=== PATIENT | male | born 1980 | race Caucasian/White ===

== ENCOUNTER 2016-12-17 11:24 | Emergency (ER) | payer MEDICAID ==
[2016-12-17 13:45] LABS: BASOPHILS 0.3 % (0-2); EOSINOPHILS 1.1 % (0-7); HEMATOCRIT 47.1 % (42.0-54.0); HEMOGLOBIN 15.9 g/dL (13.5-17.5); IMMATURE GRANULOCYTES 0.3 % (0-5); LYMPHOCYTES 30.8 % (15-50); MCHC 33.8 g/dL (31.0-37.0); MCV 94.8 fL (80.0-100.0); MEAN PLATELET VOLUME 10.6 fL (7.4-10.4); MONOCYTES 7.7 % (2-11); NEUTROPHILS 59.8 % (40-80); PLATELET COUNT 233 10x3/uL (130-400); RBC 4.97 10x6/uL (4.20-6.10); RDW 12.6 % (11.5-14.5); WBC 6.4 10x3/uL (4.8-10.8)
[2016-12-17 13:59] LABS: ALBUMIN 3.9 g/dL (3.4-5.0); ALKALINE PHOSPHATASE 64 U/L (46-116); ALT (SGPT) 44 U/L (10-68); CALC OSMOLALITY 282 mosm/kg (275-300); CARBON DIOXIDE 28.5 mmol/L (21.0-32.0); CHLORIDE - SERUM 107 mmol/L (98-107); CREATININE - SERUM 0.9 mg/dL (0.6-1.3); POTASSIUM - SERUM 4.4 mmol/L (3.5-5.1); PROTEIN - SERUM 7.3 g/dL (6.4-8.2); SODIUM 142 mmol/L (136-145); UREA NITROGEN 13 mg/dL (7-18); eGFR NON AFRICAN AMERICAN > 90 mL/min (90-120)
[2016-12-17 14:00] LABS: GLUCOSE 102 mg/dL (74-106)
[2016-12-17 14:16] LABS: MAGNESIUM - SERUM 2.3 mg/dL (1.8-2.4)
== END 2016-12-17 15:05 | disposition home or self-care (01) ==
LOC: D.ER 11:24
PROVIDERS: Emergency Medicine; Nurse Practitioner Family
DX: F91.8 Other conduct disorders (principal); F17.200 Nicotine dependence, unspecified, uncomplicated; F15.90 Other stimulant use, unspecified, uncomplicated

== ENCOUNTER 2017-11-04 11:49 | Emergency (ER) | payer MEDICAID ==
[~2017-11-04] VITALS: Ht 170.2 cm; Wt 70.5 kg
[2017-11-04 11:52] VITALS: Ht 170.2 cm; Wt 70.5 kg
[2017-11-04] MEDS ORDERED: VALIUM5 MG PO (11:55)
[2017-11-04 12:15] LABS: BASOPHILS 0.3 % (0-2); HEMATOCRIT 47.9 % (42.0-54.0); HEMOGLOBIN 16.3 g/dL (13.5-17.5); IMMATURE GRANULOCYTES 0.2 % (0-5); LYMPHOCYTES 32.2 % (15-50); MCH 31.1 pg (26.0-34.0); MCV 91.4 fL (80.0-100.0); MEAN PLATELET VOLUME 10.5 fL (7.4-10.4); MONOCYTES 8.1 % (2-11); NEUTROPHILS 56.2 % (40-80); PLATELET COUNT 245 10x3/uL (130-400); RBC 5.24 10x6/uL (4.20-6.10); RDW 12.8 % (11.5-14.5); WBC 6.1 10x3/uL (4.8-10.8)
[2017-11-04 12:32] LABS: GLUCOSE 91 mg/dL (74-106); UREA NITROGEN 9 mg/dL (7-18)
[2017-11-04 12:33] LABS: ALBUMIN 3.5 g/dL (3.4-5.0); ALKALINE PHOSPHATASE 65 U/L (46-116); ALT (SGPT) 33 U/L (10-68); BILIRUBIN - TOTAL 0.13 mg/dL (0.2-1.3); CALC OSMOLALITY 281 mosm/kg (275-300); CALCIUM 8.5 mg/dL (8.5-10.1); CARBON DIOXIDE 29.9 mmol/L (21.0-32.0); CHLORIDE - SERUM 105 mmol/L (98-107); POTASSIUM - SERUM 4.6 mmol/L (3.5-5.1); PROTEIN - SERUM 7.1 g/dL (6.4-8.2); SODIUM 142 mmol/L (136-145); eGFR NON AFRICAN AMERICAN 89 mL/min (90-120)
[2017-11-04 12:45] LABS: CKMB 0.4 U/L (0.0-3.6); CREATINE KINASE 36 UL (21-232)
[2017-11-04 12:52] LABS: TROPONIN-I < 0.017 ng/mL (0.000-0.060)
[2017-11-04] MEDS ORDERED: NAPRELAN375 MG PO (13:17)
[2017-11-04] MEDS ORDERED: ULTRAM50 MG PO (13:17)
[2017-11-04 13:51] VITALS: BP 154/106
== END 2017-11-04 13:29 | disposition home or self-care (01) ==
LOC: D.ER 11:49
PROVIDERS: Family Medicine
DX: R07.9 Chest pain, unspecified (principal); M94.0 Chondrocostal junction syndrome [Tietze]; F17.200 Nicotine dependence, unspecified, uncomplicated